=== PATIENT | male | born 1970 | race Caucasian/White ===

== ENCOUNTER 2019-07-09 13:44 | Outpatient (CLI) | payer MEDICAID ==
[~2019-07-09] VITALS: Ht 172.7 cm; Wt 79.8 kg
[2019-07-09 13:55] VITALS: BP 117/72
--- NOTE | 2019-07-09 22:15 | Consultation ---
DATE OF CONSULTATION: 07/09/2019 CHIEF COMPLAINT: Rectal bleeding. HISTORY OF PRESENT ILLNESS: This is a 49-year-old male with past medical history of diverticulitis requiring surgery in 2008 and partial colectomy. The patient has continued to have some rectal bleeding. According to him, he had a colonoscopy in 2017, which showed evidence of questionable colitis. He was given a medication, which would cost $700, which he did not fill medication for colitis, coming back to us with complaint of rectal bleeding on daily basis. PAST MEDICAL HISTORY: 1. Diverticulitis. 2. Diabetes. PAST SURGICAL HISTORY: Partial colectomy in 2008. MEDICATIONS: The patient is taking diabetes medication. ALLERGIES: No known drug allergies. FAMILY HISTORY: Noncontributory. SOCIAL HISTORY: The patient denies any tobacco, alcohol, or IV drug abuse. REVIEW OF SYSTEMS: A 10-point review of systems was performed and pertinent positives in HPI. PHYSICAL EXAMINATION: VITAL SIGNS: Temperature is 98, blood pressure is 117/72, pulse is 88, and respiration is 20. HEENT: Normocephalic and atraumatic. Sclerae anicteric. NECK: Supple. No evidence of obvious lymphadenopathy. CARDIOVASCULAR: Regular rate and rhythm. Plus S1 and S2. No obvious murmur. LUNGS: Decreased breath sounds bilaterally based on the supine exam. ABDOMEN: Soft and nontender. No rebound. No guarding. No peritoneal sign. EXTREMITIES: No cyanosis. No clubbing. No edema. ASSESSMENT AND PLAN: This is a 49-year-old male, who had rectal bleeding, history of colitis, diverticulosis, and needs repeat colonoscopy. The patient was given instruction and prep for colonoscopy. We are going to schedule him as soon as the authorization is approved. Winston Colin M.D. DR: NAYLA JOB#: [id number] CC:
[2019-07-10] MEDS ORDERED: UNOBMED (07:35)
== END 2019-07-09 15:54 | disposition home or self-care (01) ==
LOC: PAN 13:44
DX: K62.5 Hemorrhage of anus and rectum (principal); E11.9 Type 2 diabetes mellitus without complications; K57.90 Diverticulosis of intestine, part unspecified, without perforation or abscess without bleeding